=== PATIENT | male | born 2000 | race Caucasian/White ===

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

== ENCOUNTER → 2020-07-07 | Outpatient (REF) ==
--- NOTE | 2020-07-13 15:31 | SLEEPHOME ---
DIAGNOSTIC HOME SLEEP STUDY DATE: 07/07/2020 ORDERED BY: Dudley Rome at [facility]. Diagnostic home sleep testing was performed due to concern for the obstructive sleep apnea syndrome. For testing, a nocturnal T3 respiratory monitoring device was used. Continuous record was made of pulse, oxygen saturation, air flow, chest and abdominal strain, and body position. 9 hours and 59 minutes of data were reviewed. There were 6 hours and 53 minutes marked as time in bed. During the interval marked time in bed, there were 71 respiratory events identified of 10 seconds in duration or greater for a respiratory event index 10.3. The events were primarily obstructive. Three mixed and central apneas were also seen. Baseline pulse rate 50 beats per minute. Pulse rate range between 44 and 121. Baseline saturation was 93%. Saturations fell to 82%. Testing was performed in both the supine and non-supine positions. IMPRESSION: Abnormal home sleep testing with repetitive respiratory events and oxygen desaturations to 82% with a respiratory event index of 10.3 is consistent with the obstructive sleep apnea syndrome. RECOMMENDATION: The patient should be encouraged to undergo a formal sleep evaluation.
== END ==
LOC: M SLEEP HO 10:00
DX: G47.9 Sleep disorder, unspecified (principal)